=== PATIENT | male | born 2005 | race Caucasian/White ===

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

== ENCOUNTER 2025-06-07 19:54 | Emergency (ER) | payer OTHER, SELFPAY ==
[2025-06-07 19:56] VITALS: BP 119/76
[2025-06-07] MEDS: KEFLEX 500 MG PO (21:16)
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
== END 2025-06-07 21:25 | disposition home or self-care (01) ==
LOC: EMR 19:54
PROVIDERS: EMERGENCY PHYSICIAN Emergency Medicine; FAMILY PHYSICIAN Nurse Practitioner Family
DX: S71.142A Puncture wound with foreign body, left thigh, initial encounter (principal); W34.010A Accidental discharge of airgun, initial encounter
CPT/HCPCS: 99283; 73552